=== PATIENT | female | born 1960 | race Caucasian/White ===

== ENCOUNTER 2018-12-25 06:12 | Day surgery (SDC) | payer MEDICAID ==
[2018-12-23 15:30] LABS: ALBUMIN 3.5 G/DL (3.4-5.0); ALBUMIN/GLOBULIN RATIO 0.9 (1.1-1.5); ALKALINE PHOSPHATASE 102 IU/L (46-116); BLOOD UREA NITROGEN 13 MG/DL (7-18); BUN/CREATININE RATIO 15.1 (6.6-38.0); CALCIUM 8.6 MG/DL (8.5-10.1); CHLORIDE 104 MMOL/L (99-107); CREATININE 0.86 MG/DL (0.40-0.90); PRE OP ALT 32 U/L (30-65); PRE OP ANION GAP 6 (8-16); PRE OP AST 26 U/L (10-37); PRE OP BILIRUB, TOTAL 0.3 MG/DL (0.0-1.0); PRE OP GLUCOSE 95 MG/DL (70-104); PRE OP POTASSIUM 3.9 MMOL/L (3.4-5.1); PRE OP SODIUM 141 MMOL/L (135-145); TOTAL PROTEIN 7.5 G/DL (6.4-8.2); eGFR 68 ML/MIN
[2018-12-23 15:31] LABS: BASOPHILS # (AUTO) 0.1 X10'3 (0-0.2); BASOPHILS % (AUTO) 0.8 % (0-1); EOSINOPHILS # (AUTO) 0.2 X10'3 (0-0.9); EOSINOPHILS % (AUTO) 1.9 % (0-6); LYMPHOCYTES # (AUTO) 2.9 X10'3 (1.1-4.8); LYMPHOCYTES % (AUTO) 32.8 % (21-51); MEAN CORPUSCULAR HEMOGLOBIN 32.2 PG (27.0-31.0); MEAN CORPUSCULAR HGB CONC 33.8 g/dL (33.0-36.5); MEAN CORPUSCULAR VOLUME 95.4 FL (78-98); MEAN PLATELET VOLUME 7.8 FL (7.4-10.4); MONOCYTES # (AUTO) 0.6 X10'3 (0-0.9); MONOCYTES % (AUTO) 6.7 % (2-12); NEUTROPHILS # (AUTO) 5.1 X10'3 (1.8-7.7); NEUTROPHILS % (AUTO) 57.8 % (42-75); PRE OP HEMATOCRIT 46.6 % (35.0-45.0); PRE OP HEMOGLOBIN 15.7 g/dL (12.0-16.0); PRE OP PLATELET COUNT 357 X10'3 (140-440); RED BLOOD COUNT 4.88 X10'6 (4.20-5.60); RED CELL DISTRIBUTION WIDTH 14.3 % (11.5-14.5)
[2018-12-23 15:47] LABS: CLARITY,URINE SLIGHTLY CLOUDY (Clear); COLOR,URINE YELLOW (Yellow); GLUCOSE, URINE NEGATIVE (Neg); KETONES,URINE TRACE mg/dl (Neg); LEUKOCYTE ESTERASE ,URINE NEGATIVE (Neg); NITRITES, URINE NEGATIVE (Neg); OCCULT BLOOD,URINE NEGATIVE (Neg); PH,URINE 5.5 (4.8-8.0); PROTEIN,URINE NEGATIVE (Neg); UROBILINOGEN,URINE 0.2 E.U/dL (0.2-1.0)
[2018-12-23 15:51] LABS: UA COLLECTION TYPE VOIDED
[2018-12-23 15:52] LABS: SQUAMOUS EPITHELIAL CELL,UR MODERATE /LPF (FEW)
[2018-12-23 15:53] LABS: BACTERIA,URINE FEW /HPF (Neg); WBC,URINE 0-4 /HPF (0-4)
[2018-12-23 15:54] LABS: RBC,URINE 0-2 /HPF (0-2)
[~2018-12-25] VITALS: Ht 149.9 cm; Wt 60.8 kg
[2018-12-25] VITALS (20 sets, daily range): BP systolic 126–177; BP diastolic 67–105
[~2018-12-25 06:12] MED LIST: MECL-111 PO; ROPIVAcaine 0.5% (5mg/ml) 30ml vial ONE; albuterol 2.5 MG/3 ML nebule NEB ONE; cefazolin/dext.iso 2gm/100 ML IV ONE; famotidine 20mg tablet PO ONE; ketorolac trometh. 30mg/ml inj. ONE; ringers solution, lacted 1,000 ML IV SCH
[2018-12-25] MEDS ORDERED: LIDOcaine 1% (10mg/ml) 2ml vial ONE (06:43)
[2018-12-25] MEDS ORDERED: epiNEPHrine 1 mg/ml inj ONE (07:52)
[2018-12-25] MEDS ORDERED: BUPIVAcaine/PF 2.5 mg/ml (0.25%) 30ml vial ONE (07:53)
[2018-12-25] MEDS ORDERED: ceFAZolin 1000mg inj ONE (07:53)
[2018-12-25] MEDS ORDERED: sevoflurane 250ml liquid IH ONE (08:54)
[2018-12-25] MEDS ORDERED: midazolam 2 mg/2 ml injection ONE (08:57)
[2018-12-25] MEDS ORDERED: fentaNYL /PF 50mcg/ml 5ml ampule ONE (08:57)
[2018-12-25] MEDS ORDERED: LIDOcaine 2% (20mg/ml) 5ml vial ONE (09:46)
[2018-12-25] MEDS ORDERED: rocuronium 10mg/ml inj IV ONE (09:46)
[2018-12-25] MEDS ORDERED: neostigmine methylsulfate 1 MG/ML 10ml vial ONE (09:46)
[2018-12-25] MEDS ORDERED: labetalol 20mg/4ml (5mg/ml) syringe IV ONE (09:46)
[2018-12-25] MEDS ORDERED: glycopyrrolate 0.2mg/ml inj ONE (09:46)
[2018-12-25] MEDS ORDERED: propofol inj 20 ML IV ONE (09:46)
[2018-12-25] MEDS ORDERED: dexamethasone sod phosphate 4mg/ml inj. ONE (09:46)
[2018-12-25] MEDS ORDERED: ondansetron/PF 4mg/2ml inj ONE (09:46)
--- NOTE | 2018-12-25 10:03 | NUR ---
Received from OR via [facility], accompanied by Anesthesiologist Pio and report given by Anesthesiolgist. Pt placed on 10L O2 mask, sats 92-94, MD requests RT treatment, RT paged. Lap sites to abdomen with band aids CDI, x2. 20G to right 20G wrist fluids at 300cc/hr per MD. No vallejo catheter, dentures in chart. All VS stable at this time.
[2018-12-25] MEDS ORDERED: hydrALAZINE 20mg/ml inj. IV ONE ×2 (10:25→10:26)
[2018-12-25] MEDS ORDERED: ondansetron/PF 4mg/2ml inj IV PRN (10:25)
[2018-12-25] MEDS ORDERED: morphine 4 MG/ML inj SYRINge IV PRN ×2 (10:25)
[2018-12-25] MEDS ORDERED: meperidine/PF 25mg/ml syringe IV PRN ×2 (10:25)
[2018-12-25] MEDS ORDERED: ringers solution, lacted 1,000 ML IV SCH (10:25)
[2018-12-25] MEDS ORDERED: proCHLORperazine 10 MG/2 ml inj IV PRN (10:25)
[2018-12-25] MEDS: meperidine/PF 25mg/ml syringe IV PRN ×2 (10:36→11:00)
--- NOTE | 2018-12-25 14:23 | NUR ---
Pt discharged by wheelchair to vehicle without incident. Patient wearing her own clothes all belongings given to son, IV DC'd and abdom dressings remain CDI. Pt has tolerated food/liquid, voided and ambulated. [place] script filledb y Crystal and delivered, son in possession of medications with patient's knowledge. Pt's pain came down to a 5/6 but she states this is tolerable and some is related to back pain. Pt and son verbalize understanding of discharge information.
== END 2018-12-25 14:23 | disposition home or self-care (01) ==
LOC: PAS 06:12
PROVIDERS: ATTEND Surgery
DX: K40.90 Unilateral inguinal hernia, without obstruction or gangrene, not specified as recurrent (principal); M86.9 Osteomyelitis, unspecified; F17.210 Nicotine dependence, cigarettes, uncomplicated; Z98.890 Other specified postprocedural states; Z94.6 Bone transplant status; Z96.643 Presence of artificial hip joint, bilateral; Z72.89 Other problems related to lifestyle; Z79.899 Other long term (current) drug therapy; R91.8 Other nonspecific abnormal finding of lung field
CPT/HCPCS: 36415; 49650; 71046; 80053; 81001; 82948; 85025; 93005; 94640; 94760; C1781; J0171; J0360; J0690; J1100; J2001; J2175; J2250; J2270; J2405; J2704; J2710; J3010; J3490; J7120; A4215; A4314; A4618; A7000; J1885; J2795

== ENCOUNTER 2019-01-16 12:11 | Emergency (ER) | payer MEDICAID ==
[~2019-01-16] VITALS: Ht 152.4 cm; Wt 59.1 kg
[~2019-01-16 12:11] MED LIST changes: -ROPIVAcaine 0.5% (5mg/ml) 30ml vial ONE; -albuterol 2.5 MG/3 ML nebule NEB ONE; -cefazolin/dext.iso 2gm/100 ML IV ONE; -famotidine 20mg tablet PO ONE; -ketorolac trometh. 30mg/ml inj. ONE; -ringers solution, lacted 1,000 ML IV SCH
[2019-01-16] MEDS ORDERED: ondansetron/PF 4mg/2ml inj IV ONE (13:10)
[2019-01-16 13:19] LABS: BASOPHILS # (AUTO) 0.1 X10'3 (0-0.2); BASOPHILS % (AUTO) 0.9 % (0-1); EOSINOPHILS # (AUTO) 0.2 X10'3 (0-0.9); EOSINOPHILS % (AUTO) 1.9 % (0-6); HEMATOCRIT 41.4 % (35.0-45.0); HEMOGLOBIN 14.1 g/dl (12.0-16.0); LYMPHOCYTES # (AUTO) 2.6 X10'3 (1.1-4.8); LYMPHOCYTES % (AUTO) 30.3 % (21-51); MEAN CORPUSCULAR HEMOGLOBIN 32.6 PG (27.0-31.0); MEAN CORPUSCULAR VOLUME 95.8 FL (78-98); MEAN PLATELET VOLUME 7.3 FL (7.4-10.4); MONOCYTES # (AUTO) 0.7 X10'3 (0-0.9); MONOCYTES % (AUTO) 7.6 % (2-12); NEUTROPHILS # (AUTO) 5.2 X10'3 (1.8-7.7); NEUTROPHILS % (AUTO) 59.3 % (42-75); PLATELET COUNT 360 X10'3 (140-440); RED BLOOD COUNT 4.32 X10'6 (4.20-5.60); WHITE BLOOD COUNT 8.7 X10'3 (4.5-11.0)
[2019-01-16] MEDS: diatr meglu/diatrizoate 30ml oral sol.-(3 dose) bottle PO SCH ×3 (13:29→15:11)
[2019-01-16 13:32] LABS: ALANINE AMINOTRANSFERASE 18 U/L (12-78); ALBUMIN/GLOBULIN RATIO 0.7 (1.1-1.5); ALKALINE PHOSPHATASE 113 IU/L (46-116); ANION GAP 6 (8-16); ASPARTATE AMINO TRANSFERASE 16 U/L (10-37); BILIRUBIN,TOTAL 0.1 MG/DL (0.1-1.0); BLOOD UREA NITROGEN 13 MG/DL (7-18); BUN/CREATININE RATIO 15.9 (6.6-38.0); CALCIUM 8.8 MG/DL (8.5-10.1); CHLORIDE 106 MMOL/L (99-107); CREATININE 0.82 MG/DL (0.40-0.90); GLUCOSE 102 MG/DL (70-104); POTASSIUM 4.3 MMOL/L (3.5-5.1); SODIUM 143 MMOL/L (135-145); TOTAL CARBON DIOXIDE 30.9 MMOL/L (24-32); TOTAL PROTEIN 7.2 G/DL (6.4-8.2); eGFR 72 ML/MIN
[2019-01-16] MEDS: morphine 4 MG/ML inj SYRINge IV ONE ×2 (14:09→14:10)
[2019-01-16] MEDS ORDERED: iohexol 300mg/ml 100ml inj. ONE (14:46)
--- NOTE | 2019-01-16 15:32 | NUR ---
Pt en route to CT via tech.
[2019-01-16 15:46] LABS: CLARITY,URINE CLEAR (Clear); COLOR,URINE YELLOW (Yellow); GLUCOSE, URINE NEGATIVE (Neg); KETONES,URINE NEGATIVE (Neg); LEUKOCYTE ESTERASE ,URINE NEGATIVE (Neg); NITRITES, URINE NEGATIVE (Neg); OCCULT BLOOD,URINE NEGATIVE (Neg); PH,URINE 5.5 (4.8-8.0); PROTEIN,URINE NEGATIVE (Neg); UROBILINOGEN,URINE 0.2 E.U/dL (0.2-1.0)
[2019-01-16 15:48] LABS: UA COLLECTION TYPE NON-SPECIFIED
[2019-01-16] MEDS ORDERED: HYDR-3965 PO (17:13)
[2019-01-16 17:38] VITALS: BP 137/97
== END 2019-01-16 17:40 | disposition home or self-care (01) ==
LOC: ER 12:12
DX: K91.871 Postprocedural hematoma of a digestive system organ or structure following other procedure (principal); L76.34 Postprocedural seroma of skin and subcutaneous tissue following other procedure; Z98.890 Other specified postprocedural states
CPT/HCPCS: 36415; 71045; 74177; 80053; 81003; 83605; 85025; 93005; 96374; 96375; 99284; J2270; J2405; Q9963; Q9967

== ENCOUNTER 2019-06-04 10:23 | Inpatient (IN) | payer MEDICAID ==
[2019-06-04] VITALS (26 sets, daily range): BP systolic 103–190; BP diastolic 57–109
[~2019-06-04] VITALS: Ht 149.9 cm; Wt 60.9 kg
[~2019-06-04 10:23] MED LIST changes: +IBUP-2697 PO; -MECL-111 PO; +cefazolin/dext.iso 2gm/100ml 100 ML IV ONE; +famotidine 10mg tablet PO ONE; +ringers solution, lacted 1,000 ML IV SCH
[2019-06-04] MEDS ORDERED: MELA3TAB64 PO (11:25)
[2019-06-04 11:58] LABS: BASOPHILS # (AUTO) 0.1 X10'3 (0-0.2); BASOPHILS % (AUTO) 1.4 % (0-1); EOSINOPHILS # (AUTO) 0.2 X10'3 (0-0.9); EOSINOPHILS % (AUTO) 1.7 % (0-6); LYMPHOCYTES # (AUTO) 3.2 X10'3 (1.1-4.8); MEAN CORPUSCULAR HEMOGLOBIN 31.1 PG (27.0-31.0); MEAN CORPUSCULAR HGB CONC 34.1 g/dL (33.0-36.5); MEAN CORPUSCULAR VOLUME 91.1 FL (78-98); MEAN PLATELET VOLUME 7.3 FL (7.4-10.4); MONOCYTES # (AUTO) 0.7 X10'3 (0-0.9); MONOCYTES % (AUTO) 8.2 % (2-12); NEUTROPHILS # (AUTO) 4.7 X10'3 (1.8-7.7); NEUTROPHILS % (AUTO) 52.7 % (42-75); PRE OP HEMATOCRIT 45.1 % (35.0-45.0); PRE OP HEMOGLOBIN 15.4 g/dL (12.0-16.0); PRE OP PLATELET COUNT 329 X10'3 (140-440); RED BLOOD COUNT 4.95 X10'6 (4.20-5.60); RED CELL DISTRIBUTION WIDTH 14.1 % (11.5-14.5)
[2019-06-04 12:12] LABS: ALBUMIN 3.3 G/DL (3.4-5.0); ALBUMIN/GLOBULIN RATIO 0.9 (1.1-1.5); ALKALINE PHOSPHATASE 97 IU/L (46-116); BLOOD UREA NITROGEN 13 MG/DL (7-18); BUN/CREATININE RATIO 20.3 (6.6-38.0); CALCIUM 8.8 MG/DL (8.5-10.1); CHLORIDE 107 MMOL/L (99-107); CREATININE 0.64 MG/DL (0.40-0.90); PRE OP ALT 21 U/L (30-65); PRE OP ANION GAP 10 (8-16); PRE OP AST 15 U/L (10-37); PRE OP BILIRUB, TOTAL 0.4 MG/DL (0.0-1.0); PRE OP GLUCOSE 98 MG/DL (70-104); PRE OP POTASSIUM 4.1 MMOL/L (3.4-5.1); PRE OP SODIUM 142 MMOL/L (135-145); TOTAL CARBON DIOXIDE 25.3 MMOL/L (24-32); eGFR > 90 ML/MIN
[2019-06-04] MEDS ORDERED: morphine 2 MG/ML inj. syringe IV PRN ×2 (13:35→15:25)
[2019-06-04] MEDS: morphine 2 MG/ML inj. syringe IV PRN ×2 (13:58→15:31)
[2019-06-04] MEDS ORDERED: ceFAZolin 1000mg inj ONE (15:22)
[2019-06-04] MEDS ORDERED: BUPIVAcaine/PF 2.5 mg/ml (0.25%) 30ml vial ONE (15:23)
[2019-06-04] MEDS ORDERED: sevoflurane 250ml liquid IH ONE (15:32)
[2019-06-04] MEDS ORDERED: fentaNYL/PF 50MCG/1 ML 2ML syringe ONE ×2 (15:33→16:41)
[2019-06-04] MEDS ORDERED: midazolam 2 mg/2 ml injection ONE (15:33)
[2019-06-04] MEDS ORDERED: rocuronium 10mg/ml inj IV ONE (15:34)
[2019-06-04] MEDS ORDERED: propofol inj 20 ML IV ONE (15:34)
[2019-06-04] MEDS ORDERED: proCHLORperazine 10 MG/2 ml inj IV PRN (16:25)
[2019-06-04] MEDS ORDERED: morphine 4 MG/ML inj SYRINge IV PRN (16:25)
[2019-06-04] MEDS ORDERED: meperidine/PF 25mg/ml syringe IV PRN ×3 (16:25)
[2019-06-04] MEDS ORDERED: ondansetron/PF 4mg/2ml inj IV PRN (16:25)
[2019-06-04] MEDS ORDERED: acetaminophen 1,000mg/100ml IV 100 ML IV ONE (17:02)
[2019-06-04] MEDS ORDERED: neostigmine methylsulfate 1 MG/ML 10ml vial ONE (17:10)
[2019-06-04] MEDS ORDERED: glycopyrrolate 0.2mg/ml inj ONE (17:10)
--- NOTE | 2019-06-04 17:22 | NUR ---
Received from OR via [facility], accompanied by Anesthesiologist DR YARBROUGH and report given by Anesthesiolgist. PT AWAKE AND ALERT, SKIN PINK WARM AND DRY,C/O PAIN LEVEL 8, ABD SOFT, DRESSINGS CLEAN DRY AND INTACT. ABLE TO MOVE ALL EXTREMITIES, PIV DICKSON PATENT,NO COMPLAINT OF N/V.
[2019-06-04] MEDS: morphine 4 MG/ML inj SYRINge IV PRN ×2 (17:43→18:07)
[2019-06-04] MEDS ORDERED: ketorolac trometh. 30mg/ml inj. IV ONE (18:25)
[2019-06-04] MEDS ORDERED: CADD PCA waste documentation MC SCH (19:00)
[2019-06-04] MEDS ORDERED: ibuprofen 200mg tablet PO PRN (19:10)
[2019-06-04] MEDS: HYDROmorphone/NS 1 mg/ml CADD 50 ML IV SCH ×4 (19:27→23:00)
--- NOTE | 2019-06-04 20:00 | NUR ---
Patient brought up by OR via gurney. Pt alert and oriented, very painful. Patient encouraged to use her CADD pump. VSS
--- NOTE | 2019-06-04 20:02 | NUR ---
Report called to receiving nurse. Transferred via GURNEY WITH Belongings . Special Issues communicated to receiving nurse. AWAKE ,ALERT, PAIN 8, DRESSING DRY AND INTACT, PIV R WRIST PATENT, ABD SOFT, C/O NAUSEA,MOVES ALL EXTREMITIES, DILUADID CADD IN PLACE AND AVAIL, REPORT GIVEN TO TESFAYE ALCANTARA. SCDS IN PLACE.
[2019-06-04] MEDS: ringers solution, lacted 1,000 ML IV SCH (20:14)
[2019-06-04] MEDS: ondansetron/PF 4mg/2ml inj IV PRN (21:41)
[2019-06-05] VITALS: BP 161/91
[2019-06-05] MEDS: ringers solution, lacted 1,000 ML IV SCH ×2 (00:50→05:40)
[2019-06-05] MEDS: HYDROmorphone/NS 1 mg/ml CADD 50 ML IV SCH ×12 (00:57→23:00)
--- NOTE | 2019-06-05 03:00 | NUR ---
Pt attempted to get up and walk around but became very painful and was very nauseous and was vomiting. She will attempt again in the morning.
[2019-06-05 04:10] VITALS: BP 157/81
[2019-06-05] MEDS: ondansetron/PF 4mg/2ml inj IV PRN ×2 (05:16→11:55)
--- NOTE | 2019-06-05 06:23 | NUR ---
Patient in room [facility]. I have received report from MARICRUZ Smith and had the opportunity to ask questions and assume patient care.
--- NOTE | 2019-06-05 06:23 | NUR ---
Problems reprioritized. Patient report given, questions answered & plan of care reviewed with MARICRUZ Patrick.
[2019-06-05 07:00] VITALS: BP 168/84
[2019-06-05 11:00] VITALS: BP 169/81
--- NOTE | 2019-06-05 16:42 | NUR ---
Changed the [employer] electronic device. Still the same cartridge
[2019-06-05 18:00] VITALS: BP 153/77
--- NOTE | 2019-06-05 18:37 | NUR ---
Problems reprioritized. Patient report given, questions answered & plan of care reviewed with MARICRUZ Lazo.
[2019-06-05] MEDS ORDERED: diphenhydrAMINE 25mg capsule PO PRN (20:35)
[2019-06-06] VITALS: BP 179/79
[2019-06-06] MEDS: HYDROmorphone/NS 1 mg/ml CADD 50 ML IV SCH ×4 (01:00→07:00)
[2019-06-06] MEDS: ringers solution, lacted 1,000 ML IV SCH (04:03)
--- NOTE | 2019-06-06 06:26 | NUR ---
Patient in room [facility]. I have received report from Violet ALCANTARA and had the opportunity to ask questions and assume patient care.
--- NOTE | 2019-06-06 06:43 | NUR ---
Problems reprioritized. Patient report given, questions answered & plan of care reviewed with Madelyn ALCANTARA. Addendum: 06/06/19 at 0644 by Violet Desai RN Amended: Links added.
[2019-06-06] MEDS: ondansetron/PF 4mg/2ml inj IV PRN (07:54)
[2019-06-06 08:00] VITALS: BP 194/95
[2019-06-06] MEDS ORDERED: ketorolac trometh. 30mg/ml inj. IV PRN (11:10)
[2019-06-06] MEDS ORDERED: amLODIPine 5mg tablet PO SCH (12:00)
[2019-06-06 12:30] VITALS: BP 151/75
--- NOTE | 2019-06-06 18:26 | NUR ---
Patient requesting to be D/C home this evening. Telephone call out to Dr Garcia. received T/O to start discharge process. Patient report given, questions answered & plan of care reviewed with Violet ALCANTARA.
--- NOTE | 2019-06-06 19:15 | NUR ---
MEDICATED FOR PAIN WITH MOTRIN 400MG PRIOR TO IV REMOVED PT ANXIOUS TO LEAVE. FAMILY AT THE BEDSIDE.
--- NOTE | 2019-06-06 19:18 | NUR ---
pt has discharge orders, iv dc'd cath intact. reviewed pt's diet medication to take and to go to [facility]' on [address] to cigar packer and picker the medication. S&s of infection reviewed with the pt and to come back to ER AND OR CALL AND GET INTO MD. DISCHARGE PAERWORK GIVEN TO THE PT BELONGINGS OBTAINED AND TAKEN OUT TO CAR BY HER SON.
--- NOTE | 2019-06-06 19:28 | NUR ---
PT DRESSED BELONGINGS WITH HER AND NO CHANGES OR S&S OF DISTRESS. UP TO W/C AND WHEELED OUT WITH HER BELONGINGS ON HER AND WITH HER. SON DRIVING.
[2019-06-06] MEDS ORDERED: Melatonin 3mg tablet PO SCH (21:00)
== END 2019-06-06 19:26 | disposition home or self-care (01) | DRG 227 ==
LOC: PAS 10:23 → SUR 3N 20:53 → OBSVTOIN 06-05 08:00
PROVIDERS: ADMIT Surgery; ATTEND Surgery
PROC: 0FT44ZZ Resection of Gallbladder, Percutaneous Endoscopic Approach (ICD-10-PCS; 2019-06-04)
PROC: 0WUF4JZ Supplement Abdominal Wall with Synthetic Substitute, Percutaneous Endoscopic Approach (ICD-10-PCS; principal; 2019-06-05)
DX: K43.2 Incisional hernia without obstruction or gangrene (principal); F12.90 Cannabis use, unspecified, uncomplicated; F15.10 Other stimulant abuse, uncomplicated; F17.210 Nicotine dependence, cigarettes, uncomplicated; K80.20 Calculus of gallbladder without cholecystitis without obstruction; Z96.643 Presence of artificial hip joint, bilateral; I10 Essential (primary) hypertension; Z80.3 Family history of malignant neoplasm of breast; Z71.6 Tobacco abuse counseling; Z71.51 Drug abuse counseling and surveillance of drug abuser
CPT/HCPCS: 36415; 80053; 85025; 87081; 93005; A4215; A4618; A7000; C1758; C1781; G0378; J0131; J0690; J1170; J1885; J2175; J2250; J2270; J2405; J2704; J2710; J3010; J3490; J7120

== ENCOUNTER 2019-07-10 19:48 | Emergency (ER) | payer MEDICAID ==
[~2019-07-10] VITALS: Ht 149.9 cm; Wt 61.4 kg
[~2019-07-10 19:48] MED LIST changes: +MELA3TAB64 PO; -cefazolin/dext.iso 2gm/100ml 100 ML IV ONE; -famotidine 10mg tablet PO ONE; -ringers solution, lacted 1,000 ML IV SCH
[2019-07-10 20:11] VITALS: BP 113/65
== END 2019-07-11 00:54 | disposition left against medical advice (07) ==
LOC: ER 19:49
DX: M25.512 Pain in left shoulder (principal); Z53.21 Procedure and treatment not carried out due to patient leaving prior to being seen by health care provider

== ENCOUNTER → 2020-01-28 | Day surgery (SDC) | payer MEDICAID ==
[2020-01-22 14:06] LABS: BASOPHILS # (AUTO) 0.1 X10'3 (0-0.2); BASOPHILS % (AUTO) 0.7 % (0-1); EOSINOPHILS # (AUTO) 0.1 X10'3 (0-0.9); EOSINOPHILS % (AUTO) 1.2 % (0-6); LYMPHOCYTES # (AUTO) 3.3 X10'3 (1.1-4.8); LYMPHOCYTES % (AUTO) 40.5 % (21-51); MEAN CORPUSCULAR HEMOGLOBIN 32.6 PG (27.0-31.0); MEAN CORPUSCULAR HGB CONC 34.2 g/dL (33.0-36.5); MEAN CORPUSCULAR VOLUME 95.2 FL (78-98); MEAN PLATELET VOLUME 7.6 FL (7.4-10.4); MONOCYTES # (AUTO) 0.4 X10'3 (0-0.9); MONOCYTES % (AUTO) 5.5 % (2-12); NEUTROPHILS # (AUTO) 4.2 X10'3 (1.8-7.7); NEUTROPHILS % (AUTO) 52.1 % (42-75); PRE OP HEMATOCRIT 45.5 % (35.0-45.0); PRE OP HEMOGLOBIN 15.6 g/dL (12.0-16.0); PRE OP PLATELET COUNT 366 X10'3 (140-440); RED BLOOD COUNT 4.78 X10'6 (4.20-5.60); RED CELL DISTRIBUTION WIDTH 14.1 % (11.5-14.5)
[2020-01-22 14:06] LABS: CLARITY,URINE SLIGHTLY CLOUDY (Clear); COLOR,URINE YELLOW (Yellow); GLUCOSE, URINE NEGATIVE (Neg); KETONES,URINE NEGATIVE (Neg); LEUKOCYTE ESTERASE ,URINE NEGATIVE (Neg); NITRITES, URINE NEGATIVE (Neg); OCCULT BLOOD,URINE NEGATIVE (Neg); PH,URINE 5.5 (4.8-8.0); PROTEIN,URINE NEGATIVE (Neg); UROBILINOGEN,URINE 0.2 E.U/dL (0.2-1.0)
[2020-01-22 14:15] LABS: UA COLLECTION TYPE NON-SPECIFIED
[2020-01-22 14:18] LABS: PRE OP INR 0.9 INR; PRE OP PROTIME 9.8 SECONDS (9.0-12.0)
[2020-01-22 14:18] LABS: RBC,URINE 0-2 /HPF (0-2); WBC,URINE 0-4 /HPF (0-4)
[2020-01-22 14:19] LABS: AMORPHOUS URATES 3+; MUCUS STRANDS MANY /LPF (Neg); SQUAMOUS EPITHELIAL CELL,UR MANY /LPF (FEW)
[2020-01-22 14:20] LABS: BACTERIA,URINE FEW /HPF (Neg); HYALINE CASTS 0-3 /LPF (NEGATIVE); RENAL CELLS, URINE FEW /HPF; TRANSITIONAL EPI CELLS,URINE FEW /HPF
[2020-01-22 14:20] LABS: ALBUMIN 3.5 G/DL (3.4-5.0); ALBUMIN/GLOBULIN RATIO 0.9 (1.1-1.5); ALKALINE PHOSPHATASE 101 IU/L (46-116); BLOOD UREA NITROGEN 15 MG/DL (7-18); BUN/CREATININE RATIO 18.8 (6.6-38.0); CALCIUM 9.2 MG/DL (8.5-10.1); CHLORIDE 104 MMOL/L (99-107); PRE OP ALT 21 U/L (30-65); PRE OP ANION GAP 6 (8-16); PRE OP AST 17 U/L (10-37); PRE OP BILIRUB, TOTAL 0.2 MG/DL (0.0-1.0); PRE OP GLUCOSE 124 MG/DL (70-104); PRE OP POTASSIUM 3.5 MMOL/L (3.4-5.1); PRE OP SODIUM 141 MMOL/L (135-145); TOTAL PROTEIN 7.4 G/DL (6.4-8.2); eGFR 73 ML/MIN
[~2020-01-28] VITALS: Ht 149.9 cm; Wt 60.0 kg
[2020-01-28] VITALS (15 sets, daily range): BP systolic 94–148; BP diastolic 50–78
[~2020-01-28] MED LIST changes: +AMLO2.5T2 PO; +APIX5TAB3 PO; +BUPIVAcaine/PF 2.5 mg/ml (0.25%) 30ml vial ONE; +CYCL-394 PO; +HYDROcodone/acetaminophen 10/325mg tab PO ONE; -IBUP-2697 PO; +LIDOcaine 2% (20mg/ml) 5ml vial ONE; -MELA3TAB64 PO; +ceFAZolin 2gm in dextrose, iso 50 ML IV ONE; +dexamethasone sod phosphate 10mg/ml inj ONE; +famotidine 20mg tablet PO ONE; +fentaNYL/PF 50MCG/1 ML 2ML syringe IV PRN; +fentaNYL/PF 50MCG/1 ML 2ML syringe ONE; +glycopyrrolate 0.2mg/ml inj ONE; +hydrALAZINE 20mg/ml inj. IV ONE; +hydrALAZINE 20mg/ml inj. IV PRN; +labetalol 20mg/4ml (5mg/ml) syringe IV ONE; +labetalol 20mg/4ml (5mg/ml) syringe IV PRN; +midazolam 2 mg/2 ml injection ONE; +morphine 2 MG/ML inj. syringe IV PRN; +morphine 4 MG/ML inj SYRINge IV PRN; +neostigmine methylsulfate 1 MG/ML 10ml vial ONE; +ondansetron/PF 4mg/2ml inj IV PRN; +ondansetron/PF 4mg/2ml inj ONE; +propofol inj 20 ML IV ONE; +ringers solution, lacted 1,000 ML IV SCH; +rocuronium 10mg/ml inj IV ONE; +sevoflurane 250ml liquid IH ONE
--- NOTE | 2020-01-28 10:48 | NUR ---
RECEIVED FROM OR VIA [facility] ACCOMPANIED BY ANESTHESIOLOGIST DR VAIL, REPORT GIVEN. PT DROWSY BUT AROUSES WITH NO COMPLAINT OF PAIN AT THIS TIME. 20 GAUGE PIV L WRIST PATENT AND RUNNING LR AT 100 ML/HR. LG BANDAID DRESSING X3 TO ABD CDI, ABD SOFT, VSS, SKIN PINK AND WARM WITH BRISK CAP REFILL AND PPULSES PRESENT. OH.
[2020-01-28] MEDS: fentaNYL/PF 50MCG/1 ML 2ML syringe IV PRN ×3 (11:36→12:11)
--- NOTE | 2020-01-28 12:58 | NUR ---
AWAKE AND ALERT WITH COMPLAINT OF PAIN LEVEL OF 5 AT THIS TIME. 20 GAUGE PIV L WRIST DC/D. LG BANDAID DRESSING X3 TO ABD CDI, ABD SOFT, VSS, SKIN PINK AND WARM WITH BRISK CAP REFILL AND PPULSES PRESENT. ALTHEA. PT HAS HAD A DIFFICULT TIME WITH HER PAIN CONTROL AND HAS BEEN COMBATIVE AND CURSING AT THE STAFF. SHE STATED SEVERAL TIMES HER DESIRE WAS TO JUST GET HOME, A PO PAIN MED WAS GIVEN BEFORE LEAVING. PT TOLERATING FLUIDS, ABLE TO AMBULATE,AND VSS. DISCHARGE INSTRUCTIONS WERE GIVEN AND PT STATED SHE WOULD NOT LISTEN SO DIRECTIONS WERE ALSO GIVEN TO SON WHO VERBALIZED UNDERSTANDING . PT HAS MET ALL D/C CRITERIA AND WAS TRANSPORTED VIA WHEELCHAIR TO SON IN PRIVATE VEHICLE TO HOME. PT ASSISTED TO CAR FROM WHEELCHAIR WITH ONE PERSON MODERATE ASSIST. DURING TRANSFER PT WAS USING PROFANITY AND SON STATED HIS MOTHER WAS A TOUGH ONE TO DEAL WITH.
== END | disposition home or self-care (01) ==
LOC: PAS 05:46
PROVIDERS: ATTEND Surgery
DX: K43.2 Incisional hernia without obstruction or gangrene (principal); K66.0 Peritoneal adhesions (postprocedural) (postinfection); I10 Essential (primary) hypertension; M86.8X6 Other osteomyelitis, lower leg; J44.9 Chronic obstructive pulmonary disease, unspecified; F17.290 Nicotine dependence, other tobacco product, uncomplicated; Z20.828 Contact with and (suspected) exposure to other viral communicable diseases; Z79.01 Long term (current) use of anticoagulants; Z79.899 Other long term (current) drug therapy; Z98.890 Other specified postprocedural states
CPT/HCPCS: 36415; 49654; 71046; 80053; 81001; 82948; 85025; 85610; 85730; 87635; 93005; 93306; C1758; C1781; J0360; J1100; J2001; J2250; J2405; J2704; J2710; J3010; J3490; J7120; A4215; A4618; A7000

== ENCOUNTER 2020-08-25 10:50 | Outpatient (CLI) | payer MEDICAID ==
[~2020-08-25 10:50] MED LIST changes: -BUPIVAcaine/PF 2.5 mg/ml (0.25%) 30ml vial ONE; -HYDROcodone/acetaminophen 10/325mg tab PO ONE; -LIDOcaine 2% (20mg/ml) 5ml vial ONE; -ceFAZolin 2gm in dextrose, iso 50 ML IV ONE; -dexamethasone sod phosphate 10mg/ml inj ONE; -famotidine 20mg tablet PO ONE; -fentaNYL/PF 50MCG/1 ML 2ML syringe IV PRN; -fentaNYL/PF 50MCG/1 ML 2ML syringe ONE; -glycopyrrolate 0.2mg/ml inj ONE; -hydrALAZINE 20mg/ml inj. IV ONE; -hydrALAZINE 20mg/ml inj. IV PRN; -labetalol 20mg/4ml (5mg/ml) syringe IV ONE; -labetalol 20mg/4ml (5mg/ml) syringe IV PRN; -midazolam 2 mg/2 ml injection ONE; -morphine 2 MG/ML inj. syringe IV PRN; -morphine 4 MG/ML inj SYRINge IV PRN; -neostigmine methylsulfate 1 MG/ML 10ml vial ONE; -ondansetron/PF 4mg/2ml inj IV PRN; -ondansetron/PF 4mg/2ml inj ONE; -propofol inj 20 ML IV ONE; -ringers solution, lacted 1,000 ML IV SCH; -rocuronium 10mg/ml inj IV ONE; -sevoflurane 250ml liquid IH ONE
[2020-08-25 12:12] LABS: BASOPHILS % (AUTO) 0.6 % (0-1); EOSINOPHILS # (AUTO) 0.2 X10'3 (0-0.9); EOSINOPHILS % (AUTO) 2.4 % (0-6); LYMPHOCYTES # (AUTO) 2.5 X10'3 (1.1-4.8); LYMPHOCYTES % (AUTO) 32.2 % (21-51); MEAN CORPUSCULAR HEMOGLOBIN 31.7 PG (27.0-31.0); MEAN CORPUSCULAR HGB CONC 33.3 g/dL (33.0-36.5); MEAN CORPUSCULAR VOLUME 95.2 FL (78-98); MEAN PLATELET VOLUME 7.5 FL (7.4-10.4); MONOCYTES # (AUTO) 0.5 X10'3 (0-0.9); MONOCYTES % (AUTO) 6.3 % (2-12); NEUTROPHILS # (AUTO) 4.5 X10'3 (1.8-7.7); NEUTROPHILS % (AUTO) 58.5 % (42-75); PRE OP HEMATOCRIT 45.9 % (35.0-45.0); PRE OP HEMOGLOBIN 15.3 g/dL (12.0-16.0); PRE OP PLATELET COUNT 316 X10'3 (140-440); RED BLOOD COUNT 4.82 X10'6 (4.20-5.60); RED CELL DISTRIBUTION WIDTH 14.9 % (11.5-14.5)
[2020-08-25 12:28] LABS: ALBUMIN 3.4 G/DL (3.4-5.0); ALBUMIN/GLOBULIN RATIO 0.9 (1.1-1.5); ALKALINE PHOSPHATASE 93 IU/L (46-116); BLOOD UREA NITROGEN 14 MG/DL (7-18); BUN/CREATININE RATIO 22.2 (6.6-38.0); CALCIUM 9.2 MG/DL (8.5-10.1); CHLORIDE 107 MMOL/L (99-107); CREATININE 0.63 MG/DL (0.40-0.90); PRE OP ALT 20 U/L (30-65); PRE OP AST 18 U/L (10-37); PRE OP BILIRUB, TOTAL 0.1 MG/DL (0.0-1.0); PRE OP GLUCOSE 100 MG/DL (70-104); PRE OP POTASSIUM 4.3 MMOL/L (3.4-5.1); TOTAL CARBON DIOXIDE 26.9 MMOL/L (24-32); TOTAL PROTEIN 7.2 G/DL (6.4-8.2); eGFR > 90 ML/MIN
[2020-08-25 12:52] LABS: PRE OP ANION GAP 10 (8-16); PRE OP SODIUM 144 MMOL/L (135-145)
[2020-08-25] MEDS ORDERED: NO HOME MEDS (13:14)
== END 2020-08-25 23:59 | disposition home or self-care (01) ==
LOC: PRE-OP 10:50 → EDSTATUS 09-01 08:00
PROVIDERS: ATTEND Surgery
DX: Z01.812 Encounter for preprocedural laboratory examination (principal); Z20.822 Contact with and (suspected) exposure to COVID-19
CPT/HCPCS: 36415; 80053; 85025; 93005; U0003; U0005